=== PATIENT | male | born 1955 | race Caucasian/White ===

== ENCOUNTER → 2021-01-25 13:07 | Outpatient (CLI) | payer OTHER, SELFPAY ==
--- NOTE | ~2021-01-25 | XR_ITS ---
EXAMINATION: XR ankle RT min 3V DATE: 01/25/2021 13:23 INDICATION: Right ankle joint effusion. TECHNIQUE: 4 views of right ankle were obtained. COMPARISON: None. FINDINGS: Bone alignment is normal. There are punctate calcifications distal to medial malleolus. Ida nt spaces are normal. There is ankle soft tissue swelling. IMPRESSION: 1. Punctate calcifications distal to medial malleolus, which may be a finding from old injury or less likely an acute avulsion fracture. Reviewed, dictated and finalized at location A. IMPRESSION: 1. Punctate calcifications distal to medial malleolus, which may be a finding f rom old injury or less likely an acute avulsion fracture.
== END ==
PROVIDERS: PCP Internal Medicine; Visit Provider Physician Assistant
DX: M25.471 Effusion, right ankle (principal); R93.6 Abnormal findings on diagnostic imaging of limbs
CPT/HCPCS: 73610

== ENCOUNTER 2022-08-10 10:43 | Emergency (ER) | payer OTHER, SELFPAY ==
[2022-08-10] VITALS (11 sets, daily range): BP systolic 111–157; BP diastolic 77–97; PULSE 88–98; RESP 12–20; TEMP 36.6; O2SAT 92–99
--- NOTE | ~2022-08-10 | XR_ITS ---
EXAMINATION: XR shoulder RT min 2V INDICATION: Right shoulder pain TECHNIQUE: Four views of the right shoulder are submitted. COMPARISON: 03/17/2008 FINDINGS: Normal alignment. There are minimally displaced fractures of the right fifth, sixth, and se venth ribs.. No shoulder fracture. There is mild osteoarthritis of the acromioclavicular and glenohum eral joints. Soft tissues are unremarkable. IMPRESSION: 1. Acute, minimally displaced right fifth, sixth, and seventh rib fractures. 2. 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 Reviewed, dictated and finalized at location B. [facility]
--- NOTE | ~2022-08-10 | XR_ITS ---
EXAMINATION: XR ribs RT 2V w CXR 2V INDICATION: Right chest pain TECHNIQUE: PA and lateral views of the chest and 3 views of the right ribs were obtained. COMPARISON: None. FINDINGS: There are minimally displaced fractures of the right fifth, sixth, and seventh ribs. The l ungs are free of acute opacities. No pleural effusion or pneumothorax. The cardiac mediastinal silhou ette is normal. There is moderate thoracic spondylosis. IMPRESSION: 1. Minimally displaced fractures of the right fifth, sixth, and seventh ribs Reviewed, dictated and finalized at location B. 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
--- NOTE | 2022-08-10 12:27 | ED.FALL ---
HPI - Fall General Chief Complaint: Fall Stated Complaint: fall/rib pain Time Seen by Provider: 08/10/22 11:21 Source: RN notes reviewed History of Present Illness HPI Narrative: Patient presents emergency department from home for a fall. Patient states that this morning he tripped over uneven concrete landing on his right side he states he landed on his right shoulder and since that time is had pain in his right shoulder and right ribs. He states that pain is worse with movement of the right shoulder as well as any movement of his torso or deep inspiration he denies striking his head or any loss of consciousness denies neck pain shortness of breath abdominal pain nausea vomiting or any other symptoms. States he did take Tylenol this morning for the pain and he drove himself to the emergency department Related Data Home Medications Medication Instructions Recorded Confirmed cinnamon bark 500 mg capsule 500 mg PO DAILY 09/15/19 07/25/22 (Cinnamon) Allergies Allergy/AdvReac Type Severity Reaction Status Date / Time Penicillins Allergy Severe RASH Verified 07/25/22 14:55 CHILD Review of Systems Review of Systems: Gen.: Denies fevers or chills Eyes: Denies eye pain or visual change ENT: Denies congestion Respiratory: Denies shortness of breath or cough CV: Reports right-sided chest pain GI: Denies abdominal pain nausea, emesis or diarrhea Musculoskeletal: See HPI Neuro: Denies numbness, tingling, weakness or focal weakness Skin: Denies rash Except as documented, all other systems reviewed and negative PMFSH Past Medical History Medical History Acute arthritis Bilateral chronic knee pain Body mass index (bmi) 36.0-36.9, adult 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 Essential (primary) hypertension Rotator cuff dysfunction Type 2 diabetes mellitus with hyperglycemia Family History Family History Father Family history of diabetes mellitus in first degree relative Mother Family history of diabetes mellitus in first degree relative Patient's mother is Other Diabetes mellitus Family history of Alzheimer's disease Family history of arthritis Social History Social History Smoking packs per day: 1.5 Smoking cigarettes per day: 30.0 Smoking status: Current every day smoker Tobacco type: cigarettes Second hand tobacco smoke exposure: No Alcohol intake: current Lack of Transportation: No Lack of Food: Never True Current Housing: I Have Housing Concerned About Future Housing: No Difficulty Paying Gas/Electric Bills: No Difficulty Paying for Meds: No Currently Unemployed: No Education: Bachelor's Degree Difficulty w/ Childcare or Family Care: No Exam Narrative: APPEARANCE: No acute distress, nontoxic, resting in bed EYES: EOMI, PERRL HEENT: Normocephalic, atraumatic, OMM Neck: Supple no midline tenderness palpation RESPIRATORY: No respiratory distress Clear to auscultation bilaterally with no rhonchi wheezing or rales. CARDIOVASCULAR: Regular rate and rhythm without murmurs rubs or gallops. Chest: Tender palpation right anterior lateral chest wall and regions of ribs 6 through 8 pain increased with deep inspiration and rotation of the torso ABDOMINAL: Soft, nontender, nondistended, no rebound or guarding MUSCULOSKELETAl: Moves all extremities. No clubbing, cyanosis or edema. Tender palpation of the right anterior lateral shoulder no swelling or ecchymosis pain with flexion abduction greater than 45 degrees no tenderness of the right elbow or wrist radial pulse 2+ neurovascular intact no tenderness of the left upper extremity bilateral lower extremities NEURO: Awake and alert. Following commands, speech normal, no focal deficits SKIN:: Warm, dry. No rashes lesions or
[2022-08-10] MEDS: IBUPROFEN 600 MG TABLET PO (12:45)
--- NOTE | 2022-08-10 12:48 | PC.NURSE ---
Patient states he needs a urine drug screen before returning to work per his boss. RACHEL Cardenas notified.
== END 2022-08-10 13:15 | disposition home or self-care (01) ==
PROVIDERS: Emergency Provider Emergency Medicine; PCP Internal Medicine
DX: S22.41XA Multiple fractures of ribs, right side, initial encounter for closed fracture (principal); S40.011A Contusion of right shoulder, initial encounter; E11.22 Type 2 diabetes mellitus with diabetic chronic kidney disease; N18.9 Chronic kidney disease, unspecified; M19.011 Primary osteoarthritis, right shoulder; Z85.528 Personal history of other malignant neoplasm of kidney; F17.210 Nicotine dependence, cigarettes, uncomplicated; Z79.84 Long term (current) use of oral hypoglycemic drugs; Z79.4 Long term (current) use of insulin; Z79.85 Long-term (current) use of injectable non-insulin antidiabetic drugs; W18.09XA Striking against other object with subsequent fall, initial encounter
CPT/HCPCS: 71046; 71100; 73030; 99284; A9270

== ENCOUNTER → 2022-11-06 07:47 | Outpatient (CLI) | payer OTHER, SELFPAY ==
--- NOTE | ~2022-11-06 | MR_ITS ---
MRI of the right shoulder Technique: Axial proton-density fat-sat images, coronal proton density fat-sat and T2 fat-sat images, and sagittal T1-weighted and T2 fat-sat images were acquired. Clinical History: Pain Findings: There is moderate AC joint degenerative change. Suggestion of prior subacromial decompressi on surgery with small foci susceptibility artifact about the AC joint. Coracoclavicular, coracoacromi al, and coracohumeral ligaments are intact. Suture anchor present at the greater tuberosity region. Questionable focal partial articular surface tear of the mid supraspinatus tendon measuring 3 mm, versus possibly postsurgical change artifactual signal. No high-grade partial or full-thickness tear evident. Infraspinatus tendon is intact. Subscap ularis tendon is intact with advanced tendinosis. Tendon of long head of the biceps is intact. Glenoid labrum is intact, without evidence of tear. Inferior glenohumeral ligament is intact. No degenerative change of the glenohumeral joint. No joint effusion. No fluid distention of the subacromial/subdeltoid bursa. No muscle atrophy or edema. Impression: Findings consistent with prior rotator cuff repair surgery. Questionable 3 mm focal articular surface partial tear of the supraspinatous tendon versus postoperative change or artifactual signal. No high-grade partial or full-thickness rotator cuff tear seen. Advanced subscapularis tendinosis. Moderate AC joint degenerative change with suggestion of prior subacromial decompression. Reviewed, dictated and finalized at [facility]. EMBEDDED SOFTWARE ENGINEER Impression: Findings consistent with prior rotator cuff repair surgery. Questionable 3 mm f ocal articular surface partial tear of the supraspinatous tendon versus postope rative change or artifactual signal. No high-grade partial or full-thickness rotator cuff tear seen. Advanced subscapularis tendinosis. Moderate AC joint degenerative change with suggestion of prior subacromial deco mpression.
== END ==
PROVIDERS: PCP Internal Medicine; Visit Provider Orthopaedic Surgery
DX: M19.011 Primary osteoarthritis, right shoulder (principal)
CPT/HCPCS: 73221

== ENCOUNTER 2024-11-12 10:26 | Outpatient (CLI) | payer MEDICARE, SELFPAY ==
--- NOTE | ~2024-11-12 | US_ITS ---
EXAMINATION: US thyroid DATE: 11/12/2024 10:42 INDICATION: Nontoxic goiter, unspecified. TECHNIQUE: Multiple ultrasound images of the thyroid were obtained. COMPARISON: None. FINDINGS: The right thyroid lobe measures 5.3 x 2.8 x 2.0 cm. The left thyroid lobe measures 3.8 x 2.0 x 2.0 c m. In the right thyroid lobe, there is a 12 mm solid, isoechoic, wider than tall nodule with ill-def ined margin without echogenic foci (TI-RADS TR3). IMPRESSION: 1. Small thyroid nodule, likely not clinically significant. No follow-up is needed. Reviewed, dictated and finalized at location A. 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 Small thyroid nodule, likely not clinically significant. No follow-up is nee ded.
== END 2024-11-12 10:27 | disposition home or self-care (01) ==
LOC: MICIMG 10:27
PROVIDERS: PCP Nurse Practitioner; Visit Provider Nurse Practitioner Family
DX: E04.1 Nontoxic single thyroid nodule (principal); E11.65 Type 2 diabetes mellitus with hyperglycemia; Z79.4 Long term (current) use of insulin; I10 Essential (primary) hypertension; E78.5 Hyperlipidemia, unspecified; E55.9 Vitamin D deficiency, unspecified
CPT/HCPCS: 76536